=== PATIENT | male | born 1960 | race African-American/Black ===

== ENCOUNTER 2020-08-19 11:29 | Inpatient (IN) ==
[2020-08-19] MEDS ORDERED: SODIUM CHLORIDE 0.9% 1,000 ML IV STA (12:24)
[2020-08-19 12:30] LABS: Basophils % 0.3 % (0.0-0.8); Eosinophils # 0.1 10*3/uL (0.0-0.87); Eosinophils % 2.6 % (0.00-10.9); Hemoglobin 10.5 GM/DL (14.0-18.0); Immature Granulocytes % 0.5 %; Immature Granulocytes Absolute 0.02 #; Lymphocytes % 26.3 % (21.2-54.2); Mean Corpuscular HGB Conc 30.9 GM/DL (32-36); Monocytes % 17.1 % (1.7-12.7); Neutrophils % 53.2 % (38.7-73.9); Platelet Count 240 T/CUMM (130-400); Red Cell Distribution Width 13.8 % (9.3-17.3); White Blood Count 3.9 T/CUMM (4-12)
[2020-08-19 12:49] LABS: Alanine Aminotransferase < 9 U/L (16-61); Albumin 2.5 G/DL (3.4-5.0); Alkaline Phosphatase 52 U/L (45-117); Aspartate Amino Transferase 10 U/L (0-37); Blood Urea Nitrogen 29 MG/DL (7-18); Calcium 8.1 MG/DL (8.5-10.1); Carbon Dioxide 21 MMOL/L (21-32); Estimated Glom Filtration Rate 33 ML/MIN; Glucose 90 MG/DL (74-106); Osmolality,Calculated 280.7 MOS/KG (273-304); Potassium 3.9 MMOL/L (3.5-5.1); Sodium 138 MMOL/L (136-145); Total Protein 6.8 G/DL (6.4-8.3)
[2020-08-19 13:49] LABS: Eosinophils 1 % (0-10); Lymphocytes 24 % (20-55); Segmented Neutrophils 59 % (50-85); Total Cells Counted 100
[2020-08-19 14:00] LABS: HIV Antigen/Antibody Result Nonreactive (Nonreactive)
[2020-08-19] MEDS ORDERED: ACETAMINOPHEN 325 MG TABLET PO PRN (15:19)
[2020-08-19] MEDS ORDERED: PROMETHAZINE 25 MG/1 ML VIAL IM PRN (15:19)
[2020-08-19] MEDS ORDERED: DEXTROSE 50% 25 GM/50 ML VIAL IV PRN (15:19)
[2020-08-19] MEDS ORDERED: GLUCAGON 1 MG VIAL IM PRN (15:19)
[2020-08-19 15:54] LABS: Bilirubin,Urine Negative (Negative); Blood, Urine Large mg/dL (Negative); Glucose,Urine (UA) Negative (Negative); Hyaline Casts,Urine 6 /LPF (0-3); Ketones,Urine 5 mg/dL (Negative); Mucus,Urine Occasional /LPF (Occasional); Nitrite,Urine Negative (Negative); Protein,Urine 30 MG/DL; RBC,Urine 179 /HPF (0-4); Squamous Epithelial Cell,Urine Occasional /HPF (0-10); Urine Appearance Slightly Hazy (Clear); Urine Color Amber (Yellow); Urine Specific Gravity 1.014 (1.001-1.035); WBC,Urine 31 /HPF (0-6)
[2020-08-19] MEDS: SODIUM CHLORIDE 0.9% 1,000 ML IV SCH (17:30)
[2020-08-19] MEDS: ENOXAPARIN 40 MG/0.4 ML SYRINGE SUBCUT SCH (21:21)
[2020-08-20] MEDS: SODIUM CHLORIDE 0.9% 1,000 ML IV SCH ×3 (03:11→21:03)
[2020-08-20] MEDS: ONDANSETRON 4 MG/2 ML VIAL IV PRN (03:11)
[2020-08-20 04:34] LABS: Basophils % 0.5 % (0.0-0.8); Eosinophils # 0.1 10*3/uL (0.0-0.87); Hematocrit 32.6 VOL% (42.0-52.0); Hemoglobin 10.4 GM/DL (14.0-18.0); Immature Granulocytes % 0.2 %; Immature Granulocytes Absolute 0.01 #; Lymphocytes # 1.2 10*3/uL (1.4-4.0); Lymphocytes % 28.3 % (21.2-54.2); Mean Corpuscular HGB Conc 31.9 GM/DL (32-36); Mean Corpuscular Volume 83.2 FL (87-102); Monocytes % 14.7 % (1.7-12.7); Neutrophils % 54.3 % (38.7-73.9); Platelet Count 221 T/CUMM (130-400); Red Blood Count 3.92 MC/CUMM (3.8-5.5); Red Cell Distribution Width 13.9 % (9.3-17.3); White Blood Count 4.1 T/CUMM (4-12)
[2020-08-20 04:52] LABS: Hypochromasia 1+; Microcytosis 1+
[2020-08-20 04:53] LABS: Ovalocytes Slight; Platelet Estimate Normal
[2020-08-20 05:10] LABS: Alanine Aminotransferase < 9 U/L (16-61); Albumin 2.3 G/DL (3.4-5.0); Alkaline Phosphatase 50 U/L (45-117); Aspartate Amino Transferase 16 U/L (0-37); Blood Urea Nitrogen 25 MG/DL (7-18); Calcium 8.3 MG/DL (8.5-10.1); Carbon Dioxide 19 MMOL/L (21-32); Estimated Glom Filtration Rate 45 ML/MIN; Glucose 72 MG/DL (74-106); Osmolality,Calculated 281.4 MOS/KG (273-304); Potassium 4.3 MMOL/L (3.5-5.1); Sodium 140 MMOL/L (136-145); Total Protein 7.2 G/DL (6.4-8.3)
[2020-08-20] MEDS: PANTOPRAZOLE 40 MG TABLET PO SCH (09:25)
[2020-08-20] MEDS: ENOXAPARIN 40 MG/0.4 ML SYRINGE SUBCUT SCH (21:04)
[2020-08-21] MEDS: SODIUM CHLORIDE 0.9% 1,000 ML IV SCH ×3 (03:36→19:30)
[2020-08-21 05:30] LABS: Basophils % 0.3 % (0.0-0.8); Eosinophils # 0.2 10*3/uL (0.0-0.87); Eosinophils % 5.4 % (0.00-10.9); Hematocrit 31.6 VOL% (42.0-52.0); Hemoglobin 10.1 GM/DL (14.0-18.0); Lymphocytes # 1.4 10*3/uL (1.4-4.0); Lymphocytes % 37.3 % (21.2-54.2); Mean Platelet Volume 12.5 FL (9.6-12.0); Monocytes % 12.7 % (1.7-12.7); Neutrophils % 44.3 % (38.7-73.9); Platelet Count 234 T/CUMM (130-400); Red Blood Count 3.76 MC/CUMM (3.8-5.5); White Blood Count 3.9 T/CUMM (4-12)
[2020-08-21 05:48] LABS: Calcium 8.3 MG/DL (8.5-10.1); Osmolality,Calculated 279.4 MOS/KG (273-304); Potassium 4.3 MMOL/L (3.5-5.1)
[2020-08-21] MEDS ORDERED: MAGNESIUM SULF RIDER 4 GM in PREMIX 1 EACH IV PRN (08:13)
[2020-08-21] MEDS: PANTOPRAZOLE 40 MG TABLET PO SCH (09:53)
[2020-08-21] MEDS: MAGNESIUM SULF RIDER 2 GM in PREMIX 1 EACH IV PRN (11:17)
[2020-08-21] MEDS ORDERED: BISACODYL 5 MG TABLET PO ONE (12:00)
[2020-08-21] MEDS ORDERED: POLYETHYLENE GLYCOL POWDER 255 GM BOTTLE PO ONE (18:00)
[2020-08-21 19:11] LABS: CDT Result Negative (Negative); CDT Specimen Source STOOL
[2020-08-22] MEDS: SODIUM CHLORIDE 0.9% 1,000 ML IV SCH ×3 (01:21→17:46)
[2020-08-22 05:17] LABS: Basophils % 0.3 % (0.0-0.8); Eosinophils # 0.2 10*3/uL (0.0-0.87); Eosinophils % 6.4 % (0.00-10.9); Hematocrit 28.6 VOL% (42.0-52.0); Hemoglobin 9.1 GM/DL (14.0-18.0); Lymphocytes # 1.3 10*3/uL (1.4-4.0); Lymphocytes % 34.7 % (21.2-54.2); Mean Corpuscular HGB Conc 31.8 GM/DL (32-36); Mean Corpuscular Volume 82.4 FL (87-102); Mean Platelet Volume 11.8 FL (9.6-12.0); Monocytes % 12.2 % (1.7-12.7); Neutrophils % 46.4 % (38.7-73.9); Platelet Count 194 T/CUMM (130-400); Red Blood Count 3.47 MC/CUMM (3.8-5.5); White Blood Count 3.8 T/CUMM (4-12)
[2020-08-22 05:26] LABS: INR 1.3; PT Patient Result 13.3 SECS (9.8-11.9)
[2020-08-22 05:39] LABS: Calcium 7.9 MG/DL (8.5-10.1); Osmolality,Calculated 281.1 MOS/KG (273-304); Potassium 3.7 MMOL/L (3.5-5.1)
[2020-08-22] MEDS: PANTOPRAZOLE 40 MG TABLET PO SCH (10:55)
[2020-08-22] MEDS ORDERED: propofoL 200 MG/20 ML VIAL IV ONE (12:51)
[2020-08-22] MEDS ORDERED: LIDOCAINE 2% 5 ML VIAL ONE (12:51)
[2020-08-22] MEDS ORDERED: ETOMIDATE 20 MG/10 ML VIAL IV ONE (12:52)
[2020-08-22] MEDS ORDERED: PHENYLEPHRINE 1 MG/10 ML SYRINGE IV ONE (13:12)
[2020-08-22] MEDS: MAGNESIUM SULF RIDER 2 GM in PREMIX 1 EACH IV PRN (17:47)
[2020-08-23 07:03] LABS: Basophils % 0.3 % (0.0-0.8); Eosinophils # 0.3 10*3/uL (0.0-0.87); Eosinophils % 7.8 % (0.00-10.9); Hematocrit 28.7 VOL% (42.0-52.0); Hemoglobin 9.1 GM/DL (14.0-18.0); Immature Granulocytes % 0.3 %; Immature Granulocytes Absolute 0.01 #; Lymphocytes # 1.3 10*3/uL (1.4-4.0); Lymphocytes % 33.6 % (21.2-54.2); Mean Corpuscular HGB Conc 31.7 GM/DL (32-36); Mean Corpuscular Volume 82.9 FL (87-102); Mean Platelet Volume 12.3 FL (9.6-12.0); Monocytes % 9.3 % (1.7-12.7); Neutrophils % 48.7 % (38.7-73.9); Platelet Count 205 T/CUMM (130-400); Red Blood Count 3.46 MC/CUMM (3.8-5.5); Red Cell Distribution Width 14.2 % (9.3-17.3)
[2020-08-23 08:34] LABS: Calcium 7.9 MG/DL (8.5-10.1); Potassium 3.6 MMOL/L (3.5-5.1)
[2020-08-23] MEDS: PANTOPRAZOLE 40 MG TABLET PO SCH (08:45)
[2020-08-23] MEDS: MAGNESIUM SULF RIDER 2 GM in PREMIX 1 EACH IV PRN (08:49)
[2020-08-23] MEDS: SODIUM CHLORIDE 0.9% 1,000 ML IV SCH ×3 (15:12→15:13)
[2020-08-23] MEDS: LACTATED RINGERS 1,000 ML IV SCH (15:50)
[2020-08-24] MEDS: LACTATED RINGERS 1,000 ML IV SCH ×2 (05:00→23:36)
[2020-08-24 06:21] LABS: Basophils % 0.4 % (0.0-0.8); Eosinophils # 0.3 10*3/uL (0.0-0.87); Eosinophils % 5.7 % (0.00-10.9); Hematocrit 25.9 VOL% (42.0-52.0); Hemoglobin 8.6 GM/DL (14.0-18.0); Lymphocytes # 1.5 10*3/uL (1.4-4.0); Lymphocytes % 33.5 % (21.2-54.2); Mean Corpuscular HGB Conc 33.2 GM/DL (32-36); Mean Corpuscular Volume 81.4 FL (87-102); Mean Platelet Volume 12.1 FL (9.6-12.0); Monocytes % 12.3 % (1.7-12.7); Neutrophils % 48.1 % (38.7-73.9); Platelet Count 186 T/CUMM (130-400); Red Blood Count 3.18 MC/CUMM (3.8-5.5); White Blood Count 4.6 T/CUMM (4-12)
[2020-08-24 06:30] LABS: Calcium 7.5 MG/DL (8.5-10.1); Osmolality,Calculated 274.4 MOS/KG (273-304); Potassium 3.7 MMOL/L (3.5-5.1)
[2020-08-24] MEDS: PANTOPRAZOLE 40 MG TABLET PO SCH (09:32)
[2020-08-24] MEDS: SODIUM CHLORIDE 0.9% 1,000 ML IV SCH (16:36)
[2020-08-25 05:56] LABS: Basophils % 0.4 % (0.0-0.8); Eosinophils # 0.3 10*3/uL (0.0-0.87); Eosinophils % 5.7 % (0.00-10.9); Hematocrit 28.5 VOL% (42.0-52.0); Hemoglobin 9.4 GM/DL (14.0-18.0); Immature Granulocytes % 0.2 %; Immature Granulocytes Absolute 0.01 #; Lymphocytes # 1.6 10*3/uL (1.4-4.0); Lymphocytes % 30.8 % (21.2-54.2); Monocytes % 12.1 % (1.7-12.7); Neutrophils % 50.8 % (38.7-73.9); Platelet Count 200 T/CUMM (130-400); Red Blood Count 3.52 MC/CUMM (3.8-5.5); Red Cell Distribution Width 13.7 % (9.3-17.3); White Blood Count 5.1 T/CUMM (4-12)
[2020-08-25 06:23] LABS: Calcium 7.9 MG/DL (8.5-10.1); Osmolality,Calculated 274.4 MOS/KG (273-304); Potassium 3.8 MMOL/L (3.5-5.1)
[2020-08-25] MEDS: LACTATED RINGERS 1,000 ML IV SCH ×3 (10:05→21:50)
[2020-08-25] MEDS: SODIUM CHLORIDE 0.9% 1,000 ML IV SCH (10:05)
[2020-08-25] MEDS: PANTOPRAZOLE 40 MG TABLET PO SCH (10:33)
[2020-08-25] MEDS: ONDANSETRON 4 MG/2 ML VIAL IV PRN (14:20)
[2020-08-26 07:18] VITALS: BP 114/66
[2020-08-26] MEDS: LACTATED RINGERS 1,000 ML IV SCH ×2 (07:31→15:06)
[2020-08-26] MEDS: SODIUM CHLORIDE 0.9% 1,000 ML IV SCH (08:56)
[2020-08-26] MEDS: PANTOPRAZOLE 40 MG TABLET PO SCH (10:42)
== END 2020-08-26 15:21 | disposition home or self-care (01) | DRG 392 ==
LOC: EDBD → EDUNIT# → N.EDINP 11:29 → N.ED 11:29 → N.3E 08-20 14:18 → SUATTDRO 08-21 08:10
PROVIDERS: ADMIT Internal Medicine; ATTEND Internal Medicine
PROC: COLONBX (2020-08-22 11:35)

== ENCOUNTER 2020-08-30 17:14 | Inpatient (IN) ==
[2020-08-30 18:06] LABS: Basophils % 0.3 % (0.0-0.8); Eosinophils # 0.1 10*3/uL (0.0-0.87); Eosinophils % 0.8 % (0.00-10.9); Hematocrit 29.8 VOL% (42.0-52.0); Hemoglobin 9.6 GM/DL (14.0-18.0); Immature Granulocytes % 0.3 %; Immature Granulocytes Absolute 0.03 #; Lymphocytes # 1.7 10*3/uL (1.4-4.0); Lymphocytes % 19.2 % (21.2-54.2); Mean Corpuscular HGB Conc 32.2 GM/DL (32-36); Mean Platelet Volume 11.9 FL (9.6-12.0); Monocytes % 8.2 % (1.7-12.7); Neutrophils % 71.2 % (38.7-73.9); Platelet Count 239 T/CUMM (130-400); Red Blood Count 3.68 MC/CUMM (3.8-5.5); Red Cell Distribution Width 14.2 % (9.3-17.3); White Blood Count 8.8 T/CUMM (4-12)
[2020-08-30 18:18] LABS: Osmolality,Calculated 270.7 MOS/KG (273-304); Potassium 3.5 MMOL/L (3.5-5.1)
[2020-08-30] MEDS ORDERED: SODIUM CHLORIDE 0.9% 1,000 ML IV STA (18:21)
[2020-08-30] MEDS ORDERED: PANTOPRAZOLE 40 MG VIAL IV STA (18:22)
[2020-08-30] MEDS ORDERED: ONDANSETRON 4 MG/2 ML VIAL IV ONE (18:22)
[2020-08-30 20:06] LABS: Ferritin 503.2 ng/ml (26-388)
[2020-08-30 20:12] LABS: Bilirubin,Urine Negative (Negative); Blood, Urine Negative (Negative); Glucose,Urine (UA) Negative (Negative); Ketones,Urine 20 mg/dL (Negative); Mucus,Urine Occasional /LPF (Occasional); Nitrite,Urine Negative (Negative); Protein,Urine Negative; RBC,Urine <1 /HPF (0-4); Urine Appearance CLEAR (Clear); Urine Color Yellow (Yellow); Urine Specific Gravity 1.008 (1.001-1.035); Urine Urobilinogen < 2.0 EU/DL (0.2-1.0); WBC,Urine <1 /HPF (0-6)
[2020-08-30] MEDS ORDERED: PROMETHAZINE 25 MG TABLET PO PRN (20:28)
[2020-08-30] MEDS ORDERED: guaiFENesin/DM ER 600-30 MG TABLET PO PRN (20:28)
[2020-08-30] MEDS ORDERED: ACETAMINOPHEN 325 MG TABLET PO PRN (20:28)
[2020-08-30] MEDS ORDERED: hydrALAZINE 20 MG/1 ML VIAL IV PRN (20:28)
[2020-08-30] MEDS ORDERED: DEXTROSE 50% 25 GM/50 ML VIAL IV PRN (20:28)
[2020-08-30] MEDS ORDERED: GLUCAGON 1 MG VIAL IM PRN (20:28)
[2020-08-30] MEDS ORDERED: diphenhydrAMINE CAP 25 MG CAPSULE PO PRN (20:28)
[2020-08-30] MEDS ORDERED: ZALEPLON 5 MG CAPSULE PO PRN (20:28)
[2020-08-30] MEDS ORDERED: NICOTINE 21 MG/24 HR PATCH TRANSDERM PRN (20:28)
[2020-08-30] MEDS: LEVOFLOXACIN INJ 750 MG in PREMIX 1 EACH IV SCH (20:57)
[2020-08-31] MEDS: FAMOTIDINE 20 MG/2 ML VIAL IV SCH ×2 (00:24→08:00)
[2020-08-31] MEDS: ENOXAPARIN 40 MG/0.4 ML SYRINGE SUBCUT SCH ×2 (00:24→22:21)
[2020-08-31] MEDS: DEXT 5% NACL 0.9% KCL 40 MEQ 40 MEQ/1,000 ML BAG IV SCH ×4 (00:27→17:42)
[2020-08-31 05:34] LABS: Basophils % 0.2 % (0.0-0.8); Eosinophils # 0.1 10*3/uL (0.0-0.87); Eosinophils % 1.6 % (0.00-10.9); Hematocrit 28.2 VOL% (42.0-52.0); Hemoglobin 9.3 GM/DL (14.0-18.0); Immature Granulocytes % 0.2 %; Immature Granulocytes Absolute 0.01 #; Lymphocytes # 1.6 10*3/uL (1.4-4.0); Lymphocytes % 32.1 % (21.2-54.2); Mean Corpuscular Volume 79.4 FL (87-102); Mean Platelet Volume 11.4 FL (9.6-12.0); Monocytes % 11.6 % (1.7-12.7); Neutrophils % 54.3 % (38.7-73.9); Platelet Count 171 T/CUMM (130-400); Red Blood Count 3.55 MC/CUMM (3.8-5.5); Red Cell Distribution Width 14.1 % (9.3-17.3); White Blood Count 4.9 T/CUMM (4-12)
[2020-08-31 06:02] LABS: Albumin 1.9 G/DL (3.4-5.0); Bilirubin,Total 0.9 MG/DL (0.2-1.0); Osmolality,Calculated 270.7 MOS/KG (273-304); Potassium 3.8 MMOL/L (3.5-5.1)
[2020-08-31] MEDS: PANTOPRAZOLE 40 MG VIAL IV SCH ×2 (06:14→18:11)
[2020-08-31] MEDS: AZITHROMYCIN INJ 250 MG in SODIUM CHLORIDE 0.9% 250 ML IV SCH (13:05)
[2020-08-31] MEDS: ONDANSETRON 4 MG/2 ML VIAL IV PRN (14:51)
[2020-08-31] MEDS: THIAMINE 200 MG/2 ML VIAL IV SCH (14:55)
[2020-08-31] MEDS: LEVOFLOXACIN INJ 750 MG in PREMIX 1 EACH IV SCH (22:21)
[2020-09-01] MEDS: DEXT 5% NACL 0.9% KCL 40 MEQ 40 MEQ/1,000 ML BAG IV SCH ×3 (01:30→23:56)
[2020-09-01] MEDS: ONDANSETRON 4 MG/2 ML VIAL IV PRN (01:31)
[2020-09-01 06:51] LABS: Calcium 7.4 MG/DL (8.5-10.1); Osmolality,Calculated 274.4 MOS/KG (273-304); Potassium 4.4 MMOL/L (3.5-5.1)
[2020-09-01 06:57] LABS: Folate 7.2 NG/ML (5.38-24.0)
[2020-09-01] MEDS: PANTOPRAZOLE 40 MG VIAL IV SCH ×2 (07:15→18:01)
[2020-09-01] MEDS: THIAMINE 200 MG/2 ML VIAL IV SCH (10:34)
[2020-09-01] MEDS: AZITHROMYCIN INJ 250 MG in SODIUM CHLORIDE 0.9% 250 ML IV SCH (15:08)
[2020-09-01] MEDS: LEVOFLOXACIN INJ 750 MG in PREMIX 1 EACH IV SCH (20:59)
[2020-09-02] MEDS: PANTOPRAZOLE 40 MG VIAL IV SCH (06:15)
[2020-09-02 06:20] LABS: Calcium 7.4 MG/DL (8.5-10.1); Osmolality,Calculated 276.3 MOS/KG (273-304); Potassium 4.4 MMOL/L (3.5-5.1)
[2020-09-02] MEDS ORDERED: LACTATED RINGERS 1,000 ML IV SCH (08:00)
[2020-09-02] MEDS: THIAMINE 200 MG/2 ML VIAL IV SCH (08:21)
[2020-09-02] MEDS: DEXT 5% NACL 0.9% KCL 40 MEQ 40 MEQ/1,000 ML BAG IV SCH ×2 (09:56→20:19)
[2020-09-02] MEDS ORDERED: MAGNESIUM SULF RIDER 4 GM in PREMIX 1 EACH IV ONE (10:00)
[2020-09-02] MEDS ORDERED: propofoL 200 MG/20 ML VIAL IV ONE (13:05)
[2020-09-02] MEDS ORDERED: LIDOCAINE 2% 5 ML VIAL ONE (13:05)
[2020-09-02] MEDS: ENOXAPARIN 40 MG/0.4 ML SYRINGE SUBCUT SCH (20:17)
[2020-09-02] MEDS: LEVOFLOXACIN INJ 750 MG in PREMIX 1 EACH IV SCH (20:18)
[2020-09-02] MEDS: FAMOTIDINE 20 MG/2 ML VIAL IV SCH (20:52)
[2020-09-02 23:01] LABS: IgA Serum (MAYO) 428 mg/dL (61 - 356)
[2020-09-03 04:45] LABS: Basophils % 0.6 % (0.0-0.8); Eosinophils # 0.3 10*3/uL (0.0-0.87); Eosinophils % 5.7 % (0.00-10.9); Hematocrit 27.1 VOL% (42.0-52.0); Hemoglobin 8.8 GM/DL (14.0-18.0); Immature Granulocytes % 0.4 %; Immature Granulocytes Absolute 0.02 #; Lymphocytes # 2.1 10*3/uL (1.4-4.0); Lymphocytes % 39.8 % (21.2-54.2); Mean Corpuscular HGB Conc 32.5 GM/DL (32-36); Mean Corpuscular Volume 79.2 FL (87-102); Mean Platelet Volume 12.4 FL (9.6-12.0); Monocytes % 12.2 % (1.7-12.7); Neutrophils % 41.3 % (38.7-73.9); Platelet Count 164 T/CUMM (130-400); Red Blood Count 3.42 MC/CUMM (3.8-5.5); Red Cell Distribution Width 14.6 % (9.3-17.3); White Blood Count 5.2 T/CUMM (4-12)
[2020-09-03 05:06] LABS: Calcium 7.7 MG/DL (8.5-10.1); Osmolality,Calculated 274.4 MOS/KG (273-304); Potassium 4.6 MMOL/L (3.5-5.1)
[2020-09-03 05:08] LABS: Hypochromasia 1+; Microcytosis 1+; Ovalocytes Slight; Platelet Estimate Adequate
[2020-09-03] MEDS: FAMOTIDINE 20 MG/2 ML VIAL IV SCH ×2 (09:36→21:35)
[2020-09-03] MEDS: THIAMINE 200 MG/2 ML VIAL IV SCH (09:37)
[2020-09-03] MEDS: LEVOFLOXACIN INJ 750 MG in PREMIX 1 EACH IV SCH (21:36)
[2020-09-03] MEDS: ENOXAPARIN 40 MG/0.4 ML SYRINGE SUBCUT SCH (21:36)
[2020-09-04] MEDS: DEXT 5% NACL 0.9% KCL 40 MEQ 40 MEQ/1,000 ML BAG IV SCH ×2 (03:21→15:00)
[2020-09-04 05:30] LABS: Basophils % 0.6 % (0.0-0.8); Eosinophils # 0.3 10*3/uL (0.0-0.87); Eosinophils % 5.5 % (0.00-10.9); Hemoglobin 8.8 GM/DL (14.0-18.0); Immature Granulocytes % 0.4 %; Immature Granulocytes Absolute 0.02 #; Lymphocytes # 2.2 10*3/uL (1.4-4.0); Lymphocytes % 41.3 % (21.2-54.2); Mean Corpuscular HGB Conc 32.6 GM/DL (32-36); Mean Corpuscular Volume 79.6 FL (87-102); Mean Platelet Volume 12.4 FL (9.6-12.0); Neutrophils % 41.2 % (38.7-73.9); Platelet Count 151 T/CUMM (130-400); Red Blood Count 3.39 MC/CUMM (3.8-5.5); Red Cell Distribution Width 14.7 % (9.3-17.3); White Blood Count 5.3 T/CUMM (4-12)
[2020-09-04 06:29] LABS: Anisocytosis 1+; Band Neutrophils 1 % (0-10); Burr Cells 1+; Eosinophils 7 % (0-10); Lymphocytes 41 % (20-55); Platelet Estimate Normal; Segmented Neutrophils 43 % (50-85); Smudge Cells 1+; Total Cells Counted 100
[2020-09-04] MEDS ORDERED: COSYNTROPIN 0.25 MG VIAL IV ONE (08:00)
[2020-09-04] MEDS: THIAMINE 200 MG/2 ML VIAL IV SCH (09:29)
[2020-09-04] MEDS: FAMOTIDINE 20 MG/2 ML VIAL IV SCH ×2 (09:30→21:21)
[2020-09-04] MEDS ORDERED: methylPREDNISolone SOD SUC 40 MG/1 ML VIAL IV ONE (14:11)
[2020-09-04 16:52] LABS: Tissue Transglutaminase IgA Ab < 1.2 U/mL
[2020-09-04] MEDS: LEVOFLOXACIN INJ 750 MG in PREMIX 1 EACH IV SCH (21:21)
[2020-09-04] MEDS: ENOXAPARIN 40 MG/0.4 ML SYRINGE SUBCUT SCH (21:24)
[2020-09-05] MEDS: DEXT 5% NACL 0.9% KCL 40 MEQ 40 MEQ/1,000 ML BAG IV SCH ×3 (01:01→23:55)
[2020-09-05] MEDS: ONDANSETRON 4 MG/2 ML VIAL IV PRN ×2 (07:54→20:06)
[2020-09-05] MEDS: THIAMINE 200 MG/2 ML VIAL IV SCH ×2 (07:55→08:45)
[2020-09-05] MEDS: FAMOTIDINE 20 MG/2 ML VIAL IV SCH ×3 (07:55→20:00)
[2020-09-05] MEDS: predniSONE 10 MG TABLET PO SCH ×2 (07:56→08:45)
[2020-09-05] MEDS: LEVOFLOXACIN INJ 750 MG in PREMIX 1 EACH IV SCH (20:00)
[2020-09-05] MEDS: ENOXAPARIN 40 MG/0.4 ML SYRINGE SUBCUT SCH (20:03)
[2020-09-06] MEDS: predniSONE 10 MG TABLET PO SCH ×2 (07:46→08:16)
[2020-09-06] MEDS: THIAMINE 200 MG/2 ML VIAL IV SCH ×2 (07:46→08:16)
[2020-09-06] MEDS: FAMOTIDINE 20 MG/2 ML VIAL IV SCH ×2 (07:46→08:16)
[2020-09-06] MEDS: DEXT 5% NACL 0.9% KCL 40 MEQ 40 MEQ/1,000 ML BAG IV SCH (07:50)
[2020-09-06 11:58] VITALS: BP 133/76
[2020-09-08] MEDS ORDERED: predniSONE 5 MG TABLET PO SCH (09:00)
== END 2020-09-06 14:07 | disposition home or self-care (01) | DRG 643 ==
LOC: EDUNIT# → EDBD → N.ED 17:14 → N.EDINP 17:14 → N.2E 20:52 → N.5E 08-31 14:26 → SUATTDRO 09-01 14:06
PROVIDERS: ADMIT Internal Medicine; ATTEND Internal Medicine